=== PATIENT | female | born 1990 | race Caucasian/White ===

== ENCOUNTER 2022-06-13 11:11 | Outpatient (CLI) | payer OTHER ==
[~2022-06-13] VITALS: Ht 132.1 cm; Wt 82.7 kg
--- NOTE | 2022-06-13 11:25 | NUR ---
Pt arrived on unit ambulatory and with concerns for possible ROM. Pt reports feeling a "trickle" this morning. Pt also reports occasional contractions, denies vaginal bleeding and reports normal movement. EFM and toco monitors started. Vital signs WNL. SVE done by this RN FT/50/-2 with negative amniotrace and no fluid noted on exam. Dr. Ramsey notified. See physician notification for details.
[2022-06-13] MEDS ORDERED: CALCIUM ASCORB500 MG PO (11:53)
[2022-06-13] MEDS ORDERED: SYNTHROID 0.10.15 MG PO (11:54)
[2022-06-13 12:00] VITALS: BP 137/77; PULSE 86; TEMP 97.9
--- NOTE | 2022-06-13 12:34 | NUR ---
1210-PT LEFT L&D UNIT IN STABLE CONDITION. PT AMBULATED OFF THE UNIT. PT INSTRUCTED TO KEEP APPOINTMENT AT THE CLINIC. LABOR PRECAUTIONS AND KICK COUNTS EXPLAINED TO PT. PT VERBALIZED UNDERSTANDING. PT LEFT WITH NO COMPLAINTS OR CONCERNS.
== END 2022-06-13 12:10 | disposition home or self-care (01) ==
LOC: LDRO 11:11
DX: Z34.93 Encounter for supervision of normal pregnancy, unspecified, third trimester (principal); Z3A.36 36 weeks gestation of pregnancy

== ENCOUNTER 2022-07-05 10:58 | Inpatient (IN) | payer OTHER ==
[~2022-07-05] VITALS: Ht 162.6 cm; Wt 84.5 kg
[2022-07-05] VITALS (21 sets, daily range): BP systolic 124–151; BP diastolic 57–97; PULSE 61–101; TEMP 98.6–99.2
[~2022-07-05 10:58] MED LIST: CALCIUM ASCORB500 MG PO; SYNTHROID 0.10.15 MG PO
--- NOTE | 2022-07-05 11:15 | NUR ---
PT ARRIVED TO L&D UNIT CONDITION. PT AMBULATED ONTO UNIT ACCOMPANIED BY SPOUSE, MIKE. PT PLACED IN ROOM 3. EXTERNAL MONITOR AND TOCO PLACED ONTO PT'S ABDOMEN. FHR IN THE 130S WITH MODERATE VARIABILITY. PT DENIES DECREASED FM, VAGINAL BLEEDING, AND LEAKING OF FLUID. PT HAS BEEN HAVING IRREGULAR CONTRACTIONS SINCE 10AM. VS WNL AT THIS TIME. CARE PLAN UPDATED.
[2022-07-05] MEDS ORDERED: PRENATAL TABLET PO (11:29)
[2022-07-05] MEDS ORDERED: D3-5050000 IU PO (11:30)
[2022-07-05 11:54] LABS: HEMATOCRIT 38.8 % (37.0-47.0); HEMOGLOBIN 13.5 g/dl (12.5-16.0); MEAN CELL VOLUME 92 fl (80.0-100.0); MEAN CORPUSCULAR HEMOGLOBIN 32 pg (27-31); MEAN CORPUSCULAR HGB CONC 35 g/dl (33.0-37.0); PLATELET COUNT 229 K/mm3 (130-400); RED BLOOD COUNT 4.24 M/mm3 (4.10-5.30)
[2022-07-05 12:11] LABS: BILIRUBIN,TOTAL 0.4 mg/dL (0.2-1.2); CALCIUM 8.9 mg/dL (8.4-10.2); CREATININE, serum 0.59 mg/dL (0.57-1.11); POTASSIUM 3.7 mmol/L (3.5-4.5); TOTAL PROTEIN 6.5 gm/dL (6.2-8.1)
[2022-07-05 12:21] LABS: BAND 18 % (0-10); BASOPHIL 1 % (0-2); LYMPHOCYTE 23 % (20.0-51.0); NEUTROPHILS 51 % (42.0-75.2); PLATELET ESTIMATE NORMAL (NORMAL)
--- NOTE | 2022-07-05 13:50 | NUR ---
PT REQUESTING EPIDURAL AT THIS TIME. PT RATES PAIN 8 OUT OF 10. SVE PERFORMED BY Gabriel MAK RN -. ANESTHESIA NOTIFIED. IV BOLUS STARTED. FHR IN THE 115S WITH MODERATE VARIABILITY AND VARIABLES. CARE PLAN UPDATED.
--- NOTE | 2022-07-05 14:00 | NUR ---
PT SITTING FOR EPIDURAL. RN UNABLE TO CONTINOUSLY MONITOR FHR AT THIS TIME. IV BOLUS RUNNING, PULSE OX ON, AND TIMEOUT COMPLETED.
--- NOTE | 2022-07-05 14:20 | NUR ---
PT LAYING DOWN AFTER EPIDURAL. PT PAIN IMPROVING. FHR MONITOR ADJUSTED BY RN. FHR IN THE 115S WITH MODERATE VARIABILITY AT THIS TIME. VS WNL. WILL PLACE CROWDER.
--- NOTE | 2022-07-05 14:50 | NUR ---
1445-CROWDER PLACED BY Gabriel MAK RN. PT TOLERATED WELL. SVE BY RN LIP/100/0. PT REPOSITONED IN LEFT LATERAL POSITION WITH PEANUT BALL. 1450. DR. CH NOTIFIED BY PHONE. CATEGORY 1 STRIP AT THIS TIME. PT FEELING URGE TO PUSH WITH CONTRACTIONS. MD EN ROUTE.
--- NOTE | 2022-07-05 15:30 | NUR ---
1511-DR. CH AT BEDSIDE. FHR IN THE 115S AT THIS TIME WITH MODERATE VARIABILITY AND EARLY DECELERATIONS. PT UNCOMFORTABLE AND HAS URGE TO PUSH. PT REPOSTIONED IN LITHIOTOMY POSITION WITH FOOT PLATES. 1513-SVE /+[address] CH. PT PUSHING WITH CONTRACTIONS AT THIS TIME. RN AND MD AT BEDSIDE CONTINOUSLY MONITORING FHR. PERICARE PROVIDED BY DR. CH. 1522- OF INFANT HEAD AND BODY BY DR. CH. 1525-SUPERFICIAL PERINEAL LACERATION BEING REPAIRED BY DR. CH AT THIS TIME. PT DENIES ANY PAIN. BLEEDING WNL. VS WNL. 1528- OF PLACENTA BY DR. CH. PT TOLERATED WELL. PT STABLE AT THIS TIME. CARE PLAN UPDATED.
[2022-07-06 05:25] VITALS: BP 120/72; PULSE 76; TEMP 98.1
[2022-07-06 08:13] VITALS: BP 119/73; PULSE 68; TEMP 98.3
--- NOTE | 2022-07-06 09:04 | NUR ---
Initial visit; Parents thanked Housekeeping Manager for offering congratualtions and God's blessings for the of their son. Housekeeping Manager thanked family for choosing [facility].
[2022-07-06] MEDS ORDERED: IBU600 MG PO (09:27)
--- NOTE | 2022-07-06 17:25 | NUR ---
1725-Reviewed discharge instructions with patient. Denies questions. Updated on need to follow up at 6 week apt. Ambulatory off unit.
== END 2022-07-06 17:25 | disposition home or self-care (01) | DRG 807 ==
LOC: OB 10:58 → LDR 10:58 → OB 11:51
PROVIDERS: ADMIT Obstetrics & Gynecology
PROC: 10E0XZZ Delivery of Products of Conception, External Approach (ICD-10-PCS; principal; 2022-07-05)
PROC: 0HQ9XZZ Repair Perineum Skin, External Approach (ICD-10-PCS; 2022-07-05)
PROC: 10907ZC Drainage of Amniotic Fluid, Therapeutic from Products of Conception, Via Natural or Artificial Opening (ICD-10-PCS; 2022-07-05)
DX: O48.0 Post-term pregnancy (principal); Z37.0 Single live birth; Z3A.40 40 weeks gestation of pregnancy; E05.00 Thyrotoxicosis with diffuse goiter without thyrotoxic crisis or storm; O99.284 Endocrine, nutritional and metabolic diseases complicating childbirth; O70.0 First degree perineal laceration during delivery; Z79.890 Hormone replacement therapy; Z85.850 Personal history of malignant neoplasm of thyroid
CPT/HCPCS: J2590; J7120